=== PATIENT | male | born 1985 | race Caucasian/White ===

== ENCOUNTER 2022-01-06 13:31 | Observation (INO) | payer OTHER, SELFPAY ==
[2022-01-06 13:28] VITALS: BP 109/83; PULSE 78; RESP 16; TEMP 36.6; O2SAT 100
[2022-01-06] MEDS: SODIUM CHLORIDE 0.9% IV 1,000 ML 999 ML IV CONT ×2 (13:54→14:50)
[2022-01-06 14:02] LABS: Basophils Percent Auto 0.2 % (0.2-1.2); Eosinophils Absolute Auto 0.1 K/mm3 (0-0.3); Hematocrit 41.7 % (42.0-52.0); Hemoglobin 14.5 g/dL (14.0-18.0); Immature Granulocyte Absolute 0.02 K/mm3 (0.00-0.031); Immature Granulocyte Percent A 0.2 % (0-0.5); Lymphocytes Absolute Auto 0.87 K/mm3 (0.9-3.2); Lymphocytes Percent Auto 10.7 % (18.3-44.2); Mean Corpuscular HGB Conc 34.8 g/dl (32-36); Mean Corpuscular Hemoglobin 31.6 pg (26-34); Mean Corpuscular Volume 90.8 fl (80-100); Mean Platelet Volume 9.1 fl (7.4-10.4); Monocytes Absolute Auto 0.7 K/mm3 (0.1-0.6); Monocytes Percent Auto 9.1 % (2.6-8.5); Neutrophils Absolute Auto 6.4 K/mm3 (1.3-6.7); Neutrophils Percent Auto 78.8 % (45.5-73.1); Platelet Count Result 352 k/mm3 (150-375); Red Blood Count 4.59 M/mm3 (4.6-6.20); Red Cell Distribution Width 12.2 % (11.5-14.5); White Blood Count 8.2 K/mm3 (4.5-10.0)
--- NOTE | 2022-01-06 14:03 | ED.GENADULT ---
HPI - General Adult General Chief complaint: Unspecified Stated complaint: right & left flank pain Time Seen by Provider: 01/06/22 13:32 History of Present Illness HPI narrative: Patient is a 36-year-old male who presents ER with concerns of rhabdomyolysis and acute kidney injury. Reports she was hospitalized a week ago at an outside hospital for similar issue. Reports when he left his CK level was 1600. He is denying urinary frequency urgency. He does report dark urine. Reports she is living in his car currently and does not have air conditioning. He is currently in police custody after some interaction that occurred on the side of the road. Denies any physical injury from his arrest. Denies drug abuse outside of marijuana. Related Data Home Medications Medication Instructions Recorded Confirmed No Home Medications 01/06/22 01/06/22 Allergies Allergy/AdvReac Type Severity Reaction Status Date / Time No Known Allergies Allergy Verified 01/06/22 18:04 Review of Systems Review of Systems: All systems reviewed & are unremarkable except as noted in HPI and below Constitutional: Constitutional: Denies chills, Denies fever(s) and Denies headache(s) Cardiovascular: Cardiovascular: Denies chest pain, Denies rapid heart rate and Denies radiating jaw, neck or arm pain Respiratory: Respiratory: Denies cough, Denies excessive phlegm production and Denies dyspnea Musculoskeletal: Musculoskeletal: Reports muscle cramps and Denies muscle weakness PMFSH Past Medical History Medical History (Updated 01/08/22 @ 05:48 by Steve Caballero MD) Drug addiction Healthy adult male Tobacco abuse Surgical History Surgical History (Updated 01/06/22 @ 14:06 by Steve Caballero MD) No pertinent past surgical history Family History Family History Mother Epilepsy Heart attack Mother No problems noted. Sibling Heart attack Grandparent Diabetes mellitus Social History Social History (Updated 01/06/22 @ 19:56 by Sheri Mcgregor NP) Social History: HE IS EXPECTING HIS 1ST BLEED WE. HE IS ENGAGED. HE IS HOMELESS AND LIVES IN HIS VEHICLE. HE STATES THAT HE SHARES HIS CIGARETTES AND SMOKES APPROXIMATELY 2 PACKS OF CIGARETTES A DAY. HE ADMITS TO USING MARIJUANA BUT DENIES ANY OTHER DRUG CODE STATUS FULL CODE Smoking packs per day: 2 Smoking cigarettes per day: 40.0 Smoking status: Current every day smoker Tobacco type: cigarettes Alcohol intake: unknown Substance use: current Substance use type: marijuana Last use: 01/05/22 Spiritual care concerns: No Exam Narrative: GENERAL: Well-appearing, well-nourished, and in no acute distress. HEAD: Normocephalic, atraumatic. EYES: PERRL and EOMI. ENT: Mucous membranes moist. CHEST: Clear to auscultation. No respiratory distress. HEART: Regular rate and rhythm. Normal peripheral pulses. ABDOMEN: Soft, nontender, nondistended. EXTREMITIES: Normal range of motion. No edema. SKIN: Warm, dry, no rash. NEURO: Alert and oriented x3. PSYCH: Normal mood and affect. Course Reevaluation(s) Reevaluation #1: Discussed with patient and PD that it is recommended patient be admitted for observation given rhabdomyolysis especially in context of recent rhabdomyolysis with renal failure in the last week. Date: 01/06/22 Time: 14:31 Vital Signs Vital signs: Vital Signs Temperature 97.8 F 01/06/22 13:28 Pulse Rate 78 01/06/22 13:28 Respiratory Rate 16 01/06/22 13:28 Blood Pressure 109/83 01/06/22 13:28 Pulse Oximetry 100 01/06/22 13:28 Temperature 97.3 F L 01/06/22 16:00 Pulse Rate 72 01/06/22 16:00 Respiratory Rate 18 01/06/22 16:00 Blood Pressure 143/80 H 01/06/22 16:00 Pulse Oximetry 100 01/06/22 16:00 Medical Decision Making Vital Signs Vital Signs: Vital Signs Temperature 97.8 F 01/06/22 13:28 Pulse Rate 78 01/06/22 13:28 Res
[2022-01-06 14:14] LABS: Anion Gap 14 mmol/L (8-16); Blood Urea Nitrogen 15 mg/dL (9-20); Calcium 10.3 mg/dL (8.4-10.2); Carbon Dioxide 20 mmol/L (22-30); Chloride 101 mmol/L (98-107); Creatine Kinase 1058 U/L (55-170); Estimated CRCL calculation 62 ml/min; Estimated Glomerular Filt Rate > 60; Glucose 82 mg/dL (65-110); Potassium 3.5 mmol/L (3.4-5.0); Sodium 135 mmol/L (137-145)
[2022-01-06 15:04] LABS: Mucus Urine Rare /lpf; Squamous Epithelial Cell Urine Rare /hpf (Few)
[2022-01-06 15:08] LABS: Appearance Urine Clear (Clear); Bilirubin Urine 1+ (Negative); Blood Urine Negative (Negative); Color Urine Yellow (Yellow); Glucose Urine UA Negative (Negative); Ketones Urine Trace mg/dL (Negative); Leukocyte Esterase Ur Negative LEU/UL (Negative); Nitrate Urine Negative (Negative); Protein Urine 2+ mg/dL (Negative); Specific Grav Ur >= 1.030 (1.001-1.035); pH Urine 5.5 (5.0-9.0)
[2022-01-06 15:11] LABS: Add Urine Microscopic? YES
[2022-01-06 15:23] VITALS: BP 128/89; PULSE 69; RESP 20; O2SAT 100
[2022-01-06 16:00] VITALS: BP 143/80; PULSE 72; RESP 18; TEMP 36.3; O2SAT 100
[2022-01-06] MEDS: SODIUM CHLORIDE 0.9% IV 1,000 ML 175 ML IV CONT (17:32)
[2022-01-06 17:34] VITALS: BMI 19.5
--- NOTE | 2022-01-06 17:46 | ADMGEN ---
This patient, Charles Estevez, was admitted to [facility] Room 327-01. Patient/family oriented to hospital policies and general routines including ID bracelet, bed and alarms, visiting hours, pain management, procedures, bathroom and other care routines, personal items, smoking policy, room service/diet, and visiting hours. Information on how to activate the Rapid Response Team has been discussed. Patient/Family are encouraged to report perceived risks to care and to ask questions if they do not understand what they are told or what they should do.
--- NOTE | 2022-01-06 19:29 | PC.NURSE ---
Patient came out of room and stopped at the nurses station stating, I am leaving. I told patient that he had to have his IV out first. Patient stated, Ok, but I'm leaving. Patient left quickly and I was unable to take his IV out before he left. Security was called. 2 chemical manager tried to follow the patient. Patient was spotted outside of Hospital Entrance 1 getting into a blue Saturn minivan. [employer] Gatherer notified. I called [place] [employer] about this situation with details @ 1911.
--- NOTE | 2022-01-06 19:49 | PM.IMHP ---
H&P: HPI History of Present Illness Date/Time: 01/06/22 19:00 Chief Complaint: MUSCLE WEAKNESS Narrative: THIS IS A 36-YEAR-OLD MALE PATIENT WHO HAS HISTORY OF DRUG ADDICTION INCLUDING MARIJUANA AND METHAMPHETAMINE. THE PATIENT IS HOMELESS AND LIVING OUT OF HIS VEHICLE. THE PATIENT STATED THAT HE HAS AN ILLEGAL TAG ON HIS VEHICLE AND THAT HE WAS RUNNING FROM THE ROLL TESTER. THE PATIENT STATED THAT HE STARTED HAVING LOWER BACK PAIN AND MUSCLE WEAKNESS. THE PATIENT STATED THAT HE RECENTLY WAS HOSPITALIZED FOR RHABDO APPROXIMATELY 1 WEEK AGO. THE POLICE OFFICERS WERE INITIALLY WITH THE PATIENT. HOWEVER ONCE IT WAS DECIDED THE PATIENT WAS GOING TO BE ADMITTED THAN THE PLACED ULCERS LEFT. TOTAL CREATININE KINASE WAS 1058. THE PATIENT WAS GIVEN IV FLUIDS IN THE EMERGENCY ROOM. THE PATIENT WAS ADMITTED FOR OBSERVATION ON 01/06/2022. HOWEVER THE PATIENT HAS ELOPED WITH HIS IV INTACT SHORTLY AFTER HE ATE AND WAS ASSESSED. Review of Systems Review of Systems: SEE HPI All systems reviewed & are unremarkable except as noted in HPI and below Constitutional: Constitutional: Reports as per HPI and Reports no additional constitutional complaints Eyes: Eyes: Reports as per HPI and Reports no additional eye complaints ENT: Reports system reviewed and no additional complaints, except as documented and Reports Normal hearing present Cardiovascular: Cardiovascular: Reports no additional cardiovascular complaints Respiratory: Respiratory: Reports no additional respiratory complaints and Reports no additional respiratory complaints Gastrointestinal: Gastrointestinal: Reports as per HPI and Reports no additional gastrointestinal complaints Musculoskeletal: Musculoskeletal: Reports no additional musculoskeletal complaints Integumentary/Breasts: Skin/Breast: Reports system reviewed and no additional complaints, except as docu and Reports as per HPI Neurologic: Reports system reviewed and no additional complaints, except as documented, Reports as per HPI and Reports Normal hearing present Psychiatric: Psychiatric: Reports no additional psychiatric complaints and Reports as per HPI Endocrine: Endocrine: Reports no additional endocrine complaints Hematologic/Lymphatic: Hematologic/Lymphatic: Reports no additional hematologic/lymphatic complaints Allergic/Immunologic: Allergic/Immunologic: Reports no additional allergic/immunologic complaints [facility] Past Medical History Medical History (Updated 01/06/22 @ 20:00 by Sheri Mcgregor NP) Drug addiction Healthy adult male Tobacco abuse Surgical History Surgical History (Updated 01/06/22 @ 14:06 by Steve Caballero MD) No pertinent past surgical history Family History Family History Mother Epilepsy Heart attack Mother No problems noted. Sibling Heart attack Grandparent Diabetes mellitus Social History Social History (Updated 01/06/22 @ 19:56 by Sheri Mcgregor NP) Social History: HE IS EXPECTING HIS 1ST BLEED WE. HE IS ENGAGED. HE IS HOMELESS AND LIVES IN HIS VEHICLE. HE STATES THAT HE SHARES HIS CIGARETTES AND SMOKES APPROXIMATELY 2 PACKS OF CIGARETTES A DAY. HE ADMITS TO USING MARIJUANA BUT DENIES ANY OTHER DRUG CODE STATUS FULL CODE Smoking packs per day: 2 Smoking cigarettes per day: 40.0 Smoking status: Current every day smoker Tobacco type: cigarettes Alcohol intake: unknown Substance use: current Substance use type: marijuana Last use: 01/05/22 Spiritual care concerns: No Meds Home Medications and Allergies Home Medications Medication Instructions Recorded Confirmed Type No Home Medications 01/06/22 01/06/22 History Allergies Allergy/AdvReac Type Severity Reaction Status Date / Time No Known Allergies Allergy Verified 01/06/22 18:04 Vital Signs Vital Signs - 24 hr 01/06/22 13:28 01/06/22 15:23 01/06/22 16:00 Temperature 36.6 C 36.3 C L
== END 2022-01-06 19:10 | disposition left against medical advice (07) ==
LOC: ANHED 14:46 → ANH3MEDSUR 15:22
PROVIDERS: Admitting Provider Internal Medicine; Emergency Provider Emergency Medicine; Visit Provider Internal Medicine
DX: M62.82 Rhabdomyolysis (principal); F17.210 Nicotine dependence, cigarettes, uncomplicated; N19 Unspecified kidney failure; R10.9 Unspecified abdominal pain; Z59.02 Unsheltered homelessness; F19.20 Other psychoactive substance dependence, uncomplicated; F15.20 Other stimulant dependence, uncomplicated; F12.20 Cannabis dependence, uncomplicated; Z53.21 Procedure and treatment not carried out due to patient leaving prior to being seen by health care provider
CPT/HCPCS: 36415; 80048; 81001; 82550; 85025; 87086; 87088; 99285; G0378; J7030